=== PATIENT | male | born 1955 | race Caucasian/White ===

== ENCOUNTER 2021-09-23 14:11 | Emergency (ER) | payer MEDICARE ==
[2021-09-23 14:27] VITALS: RESP 20; TEMP 97.9
[2021-09-23] MEDS ORDERED: FLUORESCEIN STRIPS 1 MG STRIP BOTH EYES ONE (14:45)
[2021-09-23] MEDS ORDERED: PROPARACAINE 0.5% OPHTH DROPS 15 ML BTL BOTH EYES STA (14:45)
--- NOTE | 2021-09-23 16:27 | CT ---
EXAMINATION TYPE: CT brain wo con DATE OF EXAM: 09/23/2021 HISTORY: Double vision and hypertension. CT DLP: 1099.4 mGycm. Automated Exposure Control for Dose Reduction was Utilized. TECHNIQUE: CT scan of the head is performed without contrast. COMPARISON: None. FINDINGS: There is no acute intracranial hemorrhage or midline shift identified. There is mild diff use ventricular and sulcal prominence consistent with diffuse age-related cerebral atrophy. Ospina-whit e matter differentiation is maintained. There is 9 mm mucous retention cyst or polyp in the anterior left maxillary sinus otherwise paranasal sinuses are clear. The calvarium is intact. IMPRESSION: No acute intracranial hemorrhage or midline shift.
--- NOTE | 2021-09-23 17:02 | ED ---
General Adult HPI - General Chief complaint: Eye Problems Stated complaint: double vision Time Seen by Provider: 09/23/21 14:44 Source: patient, RN notes reviewed Mode of arrival: ambulatory Limitations: no limitations - History of Present Illness Initial comments: 66-year-old male presents to the emergency room for a chief complaint of double vision. This has been ongoing since she woke up yesterday morning. Patient states he sees 2 of everything. Patient did have injections in the bilateral eyes for diabetic retinopathy on Monday. He called his doctor today and they reported it is likely not a side effect of this. Recommended he come to the ER. Patient denies any difficulty speaking or walking. Denies weakness in the arms or legs.Patient has no other complaints at this time including shortness of breath, chest pain, abdominal pain, nausea or vomiting, headache. - Related Data Home Medications Medication Instructions Recorded Confirmed C,E,Zinc,Copper 11/Anyax6x/Lut 1 cap PO DAILY 09/23/21 09/23/21 [Ocuvite Adult 50 Plus Softgel] Cyanocobalamin (Vitamin B-12) 1,000 mcg PO DAILY 09/23/21 09/23/21 [Vitamin B-12] Garlic 1 cap PO DAILY 09/23/21 09/23/21 Glucosam/Chond/Hyalu/Cf Borate 1 tab PO DAILY 09/23/21 09/23/21 [Move Free Joint Health Tablet] Metoprolol Succinate [Toprol XL] 25 mg PO DAILY 09/23/21 09/23/21 Multivit-Min/FA/Lycopen/Lutein 1 tab PO DAILY 09/23/21 09/23/21 [Centrum Silver Men Tablet] Tamsulosin HCl [Flomax] 0.4 mg PO DAILY 09/23/21 09/23/21 glipiZIDE XL [Glucotrol Xl] 10 mg PO DAILY 09/23/21 09/23/21 Allergies Allergy/AdvReac Type Severity Reaction Status Date / Time No Known Allergies Allergy Verified 09/23/21 18:05 Review of Systems ROS Statement: Those systems with pertinent positive or pertinent negative responses have been documented in the HPI. ROS Other: All systems not noted in ROS Statement are negative. Past Medical History Past Medical History: Hypertension Additional Past Medical History / Comment(s): eye History of Any Multi-Drug Resistant Organisms: None Reported Past Surgical History: No Surgical Hx Reported Past Psychological History: No Psychological Hx Reported Smoking Status: Never smoker Past Alcohol Use History: None Reported Past Drug Use History: None Reported General Exam - General Exam Comments Initial Comments: Proparacaine was given to bilateral eyes and fluorescein stain was used with the Wood's lamp. No abrasions. IOP 22 OS, 20 OD. Visual acuity 20/40 OS, 20/50 OD, 20/30 bilaterally. Limitations: no limitations General appearance: alert, in no apparent distress Head exam: Present: atraumatic Eye exam: Present: normal appearance, PERRL, EOMI. Absent: scleral icterus, conjunctival injection ENT exam: Present: normal exam, mucous membranes moist Neck exam: Present: normal inspection, full ROM. Absent: tenderness Respiratory exam: Present: normal lung sounds bilaterally. Absent: respiratory distress, wheezes Cardiovascular Exam: Present: regular rate, normal rhythm, normal heart sounds GI/Abdominal exam: Present: soft, normal bowel sounds. Absent: distended, tenderness Neurological exam: Present: alert, oriented X3, normal gait Expanded Patient oriented to: Present: person, place, time Speech: Present: fluid speech Cranial nerves: Tongue Deviation: Normal, Nystagmus: Normal, Facial Sensation: Normal Upper motor neuron: Pronator Drift: Normal Sensory exam: Upper Extremity Light Touch: Normal, Upper Extremity Pin Prick: Normal, Lower Extremity Light Touch: Normal, Lower Extremity Pin Prick: Normal Motor strength exam: RUE: 5, LUE: 5, RLE: 5, LLE: 5 Course Vital Signs 09/23/21 09/23/21 09/23/21 14:23 15:56 18:30 Temperature 97.9 F Pulse Rate 72 76 Respiratory 20 20 Rate Blood Pressure 223/115 204/98 201/83 O2 Sat by Pulse 97 98 Oximetry Medical Decision Making - Medical Decision Making Vitals as documented. HPI and physical exam as documented. No focal neurologic deficits. Case was discussed with Dr. 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 Does not feel this is related to the injections. States that at this time patient does not require any additional workup for that the vision and he will see him in the office tomorrow. pt is also Hypertensive in the emergency room. Laboratory evaluation was unremarkable. He was given a dose of hydralazine. He will be discharged home with a dose of his metoprolol. We did discuss keeping a log of his blood pressure twice daily and following up with his doctor for this - Lab Data Result diagrams: 09/23/21 17:19 09/23/21 17:19 Lab Results 09/23/21 09/23/21 Range/Units 17:19 17:19 WBC 7.9 (3.8-10.6) k/uL RBC 5.20 (4.30-5.90) m/uL Hgb 16.0 (13.0-17.5) gm/dL Hct 47.9 (39.0-53.0) % MCV 92.2 (80.0-100.0) fL MCH 30.8 (25.0-35.0) pg MCHC 33.3 (31.0-37.0) g/dL RDW 13.8 (11.5-15.5) % Plt Count 182 (150-450) k/uL MPV 9.7 Neutrophils % 66 % Lymphocytes % 26 % Monocytes % 5 % Eosinophils % 2 % Basophils % 0 % Neutrophils # 5.2 (1.3-7.7) k/uL Lymphocytes # 2.1 (1.0-4.8) k/uL Monocytes # 0.4 (0-1.0) k/uL Eosinophils # 0.1 (0-0.7) k/uL Basophils # 0.0 (0-0.2) k/uL Sodium 140 (137-145) mmol/L Potassium 4.0 (3.5-5.1) mmol/L Chloride 107 (98-107) mmol/L Carbon Dioxide 24 (22-30) mmol/L Anion Gap 9 mmol/L BUN 20 (9-20) mg/dL Creatinine 0.96 (0.66-1.25) mg/dL Est GFR (CKD-EPI)AfAm >90 (>60 ml/min/1.73 sqM) Est GFR (CKD-EPI)NonAf 82 (>60 ml/min/1.73 sqM) Glucose 93 (74-99) mg/dL Calcium 9.5 (8.4-10.2) mg/dL Total Bilirubin 0.7 (0.2-1.3) mg/dL AST 31 (17-59) U/L ALT 34 (4-49) U/L Alkaline Phosphatase 57 (38-126) U/L Total Protein 7.8 (6.3-8.2) g/dL Albumin 4.7 (3.5-5.0) g/dL Disposition Clinical Impression: Diplopia, Hypertension Disposition: HOME SELF-CARE Condition: Good Instructions (If sedation given, give patient instructions): Diplopia (ED) Additional Instructions: Please call Dr. Garcia first thing tomorrow morning. He wants to fit you into the schedule tomorrow. If you're having worsening symptoms return to the emergency room. Follow-up with your primary care provider for your blood pressure as well. Is patient prescribed a controlled substance at d/c from ED?: No Referrals: Luis Gonzalez MD [Primary Care Provider] - 1-2 days Erki Garcia MD [STAFF PHYSICIAN] - 1-2 days Time of Disposition: 18:54
[2021-09-23] MEDS ORDERED: SODIUM CHLORIDE 0.9% 500 ML 500 ML IV STA (17:04)
[2021-09-23] MEDS ORDERED: hydrALAZINE HCL 20 MG/ML 1 ML VIAL IVP STA (17:25)
[2021-09-23 17:28] LABS: Basophils % (A) 0 %; Eosinophils # (A) 0.1 k/uL (0-0.7); Eosinophils % (A) 2 %; HCT 47.9 % (39.0-53.0); Lymphocytes # (A) 2.1 k/uL (1.0-4.8); Lymphocytes % (A) 26 %; MCH 30.8 pg (25.0-35.0); MCHC 33.3 g/dL (31.0-37.0); MCV 92.2 fL (80.0-100.0); Mean Platelet Volume 9.7; Monocytes # (A) 0.4 k/uL (0-1.0); Monocytes % (A) 5 %; Neutrophils # (A) 5.2 k/uL (1.3-7.7); Neutrophils % (A) 66 %; Platelet Count 182 k/uL (150-450); RDW 13.8 % (11.5-15.5); WBC 7.9 k/uL (3.8-10.6)
[2021-09-23 17:38] LABS: Chloride 107 mmol/L (98-107)
[2021-09-23 17:40] LABS: ALT 34 U/L (4-49); AST 31 U/L (17-59); African American GFR (CKD) >90 (>60 ml/min/1.73 sqM); Albumin 4.7 g/dL (3.5-5.0); Alkaline Phosphatase 57 U/L (38-126); Anion Gap 9 mmol/L; Blood Urea Nitrogen 20 mg/dL (9-20); Calcium 9.5 mg/dL (8.4-10.2); Carbon Dioxide 24 mmol/L (22-30); Glucose 93 mg/dL (74-99); Non-African American GFR(CKD) 82 (>60 ml/min/1.73 sqM); Sodium 140 mmol/L (137-145); Total Bilirubin 0.7 mg/dL (0.2-1.3); Total Protein 7.8 g/dL (6.3-8.2)
[2021-09-23 18:31] VITALS: BP 201/83; PULSE 76
[2021-09-23] MEDS ORDERED: METOPROLOL SUCCINATE (ER) 25 MG TAB.ER.24H PO STA (18:34)
== END 2021-09-23 19:02 | disposition home or self-care (01) ==
LOC: EC 14:11
DX: H53.2 Diplopia (principal); I10 Essential (primary) hypertension; Z79.84 Long term (current) use of oral hypoglycemic drugs; Z79.899 Other long term (current) drug therapy
CPT/HCPCS: 36415; 80053; 85025; 70450; 99284; 96374; 96361; J0360

== ENCOUNTER → 2022-08-16 | Outpatient (CLI) | payer MEDICARE ==
[2022-08-16 14:26] LABS: HCT 44.6 % (39.6-50.0); MCH 31.1 pg (27.0-32.0); MCHC 33.6 g/dL (32.0-37.0); MCV 92.5 fL (80.0-97.0); Mean Platelet Volume 12.7 fL (9.5-12.2); NRBC Per 100 WBC 0 /100 WBCS (0.0-0.0); Platelet Count 178 X 10*3/uL (140-440); RBC 4.82 X 10*6/uL (4.40-5.60); RDW 13.9 % (11.5-14.5); WBC 11.05 X 10*3/uL (4.50-10.00)
[2022-08-16 15:33] LABS: African American GFR (CKD) 88.2 (60.0-200.0); Anion Gap 9.6 mmol/L (10.00-18.00); BUN/Creat Ratio 20.69 Ratio (12.00-20.00); Blood Urea Nitrogen 20.9 mg/dL (9.0-27.0); Calcium 9.6 mg/dL (8.7-10.3); Carbon Dioxide 27.5 mmol/L (20.0-27.5); Non-African American GFR(CKD) 76.1 (60.0-200.0); Potassium 5.2 mmol/L (3.5-5.5)
== END | disposition home or self-care (01) ==
LOC: LABPAT 09:26
PROVIDERS: ATTEND Urology
DX: Z01.812 Encounter for preprocedural laboratory examination (principal); C61 Malignant neoplasm of prostate
CPT/HCPCS: 80048; 85027

== ENCOUNTER → 2022-10-12 | Outpatient (CLI) | payer MEDICARE ==
--- NOTE | 2022-10-14 06:14 | MR ---
EXAMINATION TYPE: MR Prostate wo/w con DATE OF EXAM: 10/12/2022 COMPARISON: None. INDICATION: MALIGNANT NEOPLASM OF PROSTATE PSA: 7.00 ng/ml on May 16, 2022 Recent Biopsy and Date: June 28, 2022 Pathology Report (If Applicable): Right base adenocarcinoma Strawn grade 3+3 = 6, approximately 10% of tissue measures 1 mm. Right mid core biopsy atypical small acinar proliferation. Left lateral base adenocarcinoma Strawn grade 4+3 = 7, 20% of tissue measuring 2 mm in length. Left base adenocarcino ma Strawn grade 3+4 = 7, approximate 60% of tissue measuring 5 mm in length. Left lateral mid adenoc arcinoma Strawn grade 3+4 = 7 approximately 20% of tissue measuring 2 mm in length. Left mid adenoca rcinoma Gricelda grade 4+3 = 7, approximate 60% of tissue measuring 6 mm in length. Left lateral apex adenocarcinoma Gricelda grade 4+3 = 7, approximately 90% of tissue measuring 7 mm in length. Left apex adenocarcinoma Gricelda grade 3+4 = 7, approximately 20% of the tissue measuring 2 mm in length. TECHNIQUE: Examination was performed using a 3T MRI without an endorectal coil. Multiparametric imaging was perf ormed with T2 mutliplanar sequences, axial diffusion weighted imaging and dynamic contrast enhanced i maging, utilizing 11 mL intravenous Gadavist gadolinium contrast. FINDINGS: There is no clinically significant cancer identified. PROSTATE VOLUME: 3.3 cm SI x 2.7 cm AP x 4.1 cm LR Vol= 19.1 cc PSA DENSITY: 0.37 ng/ml/cc In the left peripheral zone mid gland level, there are areas of focal mild to moderate diminished sig nal on ADC mapping with mild increased signal on diffusion-weighted imaging. They show diminished sig nal on T2-weighted imaging. No suspicious postcontrast enhancement is seen. PI-RADS 3 . Central zone shows overall heterogeneity without area of significant diminished T2 signal. Seminal vesicles appear within normal limits. Urinary bladder shows adequate distention without suspi cious wall thickening or trabeculation. There are nonspecific pelvic lymph nodes for reference 9 x 6 mm right pelvic lymph node axial image 30 is noted. There are at least small to moderate-sized fat-co ntaining bilateral inguinal hernias. No concerning pelvic fluid collection. IMPRESSION: Normal-sized prostate. Highest Assessment Category: 3 MRI Stage: T1c N0 M0 based on review of pelvic images. False negative rates for MRI range from 5-20% depending on risk profile. Assessment Categories: 1 ? Very low (clinically significant cancer is highly unlikely to be present) 2 ? Low (clinically significant cancer is unlikely to be present) 3 ? Intermediate (the presence of clinically significant cancer is equivocal) 4 ? High (clinically significant cancer is likely to be present) 5 ? Very high (clinically significant cancer is highly likely to be present)
== END | disposition home or self-care (01) ==
LOC: RADMRIMAIN 09:14
PROVIDERS: ATTEND Radiology Radiation Oncology
DX: C61 Malignant neoplasm of prostate (principal)
CPT/HCPCS: 72197; A9585

== ENCOUNTER → 2022-10-17 | Outpatient (CLI) | payer MEDICARE ==
--- NOTE | 2022-10-18 09:18 | NM ---
EXAMINATION TYPE: NM bone scan whole body DATE OF EXAM: 10/17/2022 COMPARISON: NONE HISTORY: 67-year-old male C6 1, malignant neoplasm of prostate TECHNIQUE: Delayed whole-body scanning was performed following the injection of 21.0 mCi Tc 99m MDP. Images acquired 3 hours post injection. FINDINGS: Some normal bladder activity is noted. Focal activity at the left antecubital fossa corresponding to the injection site. Some degenerative tracer activity at the shoulders and sternoclavicular joints. U rine contamination noted. Some degenerative change at the right hindfoot. No suspicious distribution of tracer activity to suggest osseous metastatic disease. IMPRESSION: No scintigraphic evidence for osseous metastatic disease.
== END | disposition home or self-care (01) ==
LOC: RADNMMAIN 10:19
PROVIDERS: ATTEND Radiology Radiation Oncology
DX: C61 Malignant neoplasm of prostate (principal)
CPT/HCPCS: 78306; A9503

== ENCOUNTER → 2022-11-09 | Outpatient (CLI) | payer MEDICARE ==
[2022-11-09 19:25] LABS: Basophils # (A) 0.06 X 10*3/uL (0.00-0.10); Basophils % (A) 0.9 %; Eosinophils # (A) 0.15 X 10*3/uL (0.04-0.35); Eosinophils % (A) 2.1 %; HCT 44.2 % (39.6-50.0); HGB 14.3 g/dL (13.0-17.0); Immature Grans, Automated 0.3 %; Lymphocytes # (A) 1.84 X 10*3/uL (0.90-5.00); Lymphocytes % (A) 26.2 %; MCH 30.2 pg (27.0-32.0); MCHC 32.4 g/dL (32.0-37.0); MCV 93.2 fL (80.0-97.0); Mean Platelet Volume 12.8 fL (9.5-12.2); Monocytes # (A) 0.56 X 10*3/uL (0.20-1.00); NRBC Per 100 WBC 0 /100 WBCS (0.0-0.0); Neutrophils # (A) 4.39 X 10*3/uL (1.80-7.70); Neutrophils % (A) 62.5 %; Platelet Count 184 X 10*3/uL (140-440); RBC 4.74 X 10*6/uL (4.40-5.60); RDW 13.2 % (11.5-14.5); WBC 7.02 X 10*3/uL (4.50-10.00)
[2022-11-10 13:25] LABS: African American GFR (CKD) 89.2 (60.0-200.0); BUN/Creat Ratio 24.1 Ratio (12.00-20.00); Blood Urea Nitrogen 24.1 mg/dL (9.0-27.0); Calcium 9.9 mg/dL (8.7-10.3); Potassium 4.5 mmol/L (3.5-5.5)
== END | disposition home or self-care (01) ==
LOC: LABPAT 11:03
PROVIDERS: ATTEND Urology
DX: Z01.812 Encounter for preprocedural laboratory examination (principal); C61 Malignant neoplasm of prostate
CPT/HCPCS: 36415; 80048; 85025

== ENCOUNTER 2022-11-17 12:28 | Day surgery (SDC) | payer MEDICARE ==
--- NOTE | 2022-11-16 21:41 | P.GSHP ---
History of Present Illness H&P Date: 11/16/22 Chief Complaint: Prostate cancer The patient is a 67-year-old white male whose PSA level was 6.17 in September 2021. His prostate was palpably normal at that time. His PSA level saeed to 7.April, and a small nodule was palpable at the left apex at that time. He underwent a prostate ultrasound with biopsies. The prostate volume was 39 mL. A left apical hypoechoic lesion was seen, and 7 of 12 biopsies showed evidence of malignancy. Specifically, 1 of 6 right-sided biopsies showed a small focus of Pelsor 6 adenocarcinoma. However, all 6 left-sided biopsies showed Pelsor 7 adenocarcinoma. His Prolaris molecular score is 4.4. He was offered the options of radiation therapy versus surgery and has elected to undergo the latter. This was attempted on 08/24/2022 but it was aborted due to respiratory failure. In view of this, he will be treated with androgen deprivation therapy and IMRT. He received a Lupron injection 09/06/2022. He now comes for SpaceOAR implant to reduce the risk of rectal toxicity. - Constitutional Constitutional: Reports fatigue - Genitourinary (Male) Genitourinary: Reports urinary frequency Past Medical History Past Medical History: Cancer, Diabetes Mellitus, Hypertension Additional Past Medical History / Comment(s): eye, cough in morning ? allergies, Prostate cancer . skin cancer removed History of Any Multi-Drug Resistant Organisms: None Reported Past Surgical History: No Surgical Hx Reported Additional Past Surgical History / Comment(s): mult skin grafts 1960s, radical prostatectomy aborted pt had breathing issues Past Anesthesia/Blood Transfusion Reactions: No Reported Reaction Additional Past Anesthesia/Blood Transfusion Reaction / Comment(s): no known hx blood transfusion. aborted anesthesia with procedure due to resp issues Smoking Status: Former smoker - Past Family History Brother(s) Additional Family Medical History / Comment(s): -unk cause Father Family Medical History: Cancer Additional Family Medical History / Comment(s): at age 58-jaw [place] Medications and Allergies Home Medications Medication Instructions Recorded Confirmed Type C,E,Zinc,Copper 11/Fxmcs3o/Lut 1 cap PO DAILY 09/23/21 11/15/22 History [Ocuvite Adult 50 Plus Softgel] Cyanocobalamin (Vitamin B-12) 1,000 mcg PO DAILY 09/23/21 11/15/22 History [Vitamin B-12] Garlic 1 cap PO DAILY 09/23/21 11/15/22 History Glucosam/Chond/Hyalu/Cf Borate 1 tab PO DAILY 09/23/21 11/15/22 History [Move Free Joint Health Tablet] Metoprolol Succinate [Toprol XL] 50 mg PO QAM 09/23/21 11/15/22 History Multivit-Min/FA/Lycopen/Lutein 1 tab PO DAILY 09/23/21 11/15/22 History [Centrum Silver Men Tablet] glipiZIDE XL [Glucotrol Xl] 10 mg PO DAILY 09/23/21 11/15/22 History Benazepril HCl 20 mg PO QAM 08/19/22 11/15/22 History Allergies Allergy/AdvReac Type Severity Reaction Status Date / Time No Known Allergies Allergy Verified 11/15/22 10:06 Surgical - Exam - General well developed, well nourished, no distress - Respiratory normal respiratory effort - Abdomen Abdomen: soft, non tender, no guarding, no rigid, no rebound - Genitourinary normal penis with no external lesions, testicles non-tender - Rectum Rectum: normal sphincter tone, no masses, other (Prostate mildly enlarged with left apical nodule) - Psychiatric oriented to time, oriented to person, oriented to place, speech is normal, memory intact Assessment and Plan (1) Malignant neoplasm of prostate Status: Acute Code(s): C61 - MALIGNANT NEOPLASM OF PROSTATE SNOMED Code(s): 284655511 Plan: The SpaceOar implant has been reviewed in detail with the patient. He understands that the rationale for this is to create separation between the prostate and rectum, thus reducing the risk of radiation proctitis. The material begins to breakdown 12-13 weeks following implant, and is reabsorbed by the body. Risks include anesthesia, bleeding, infection, and perineal discomfort. He understands that if the rectal wall is perforated the procedure will need to be aborted.
[~2022-11-17 12:28] MED LIST: DEXAMETHASONE SOD PHOSPHATE 4 MG/ML 1 ML VIAL IV ONE; HYDROmorphone 0.5 MG/0.5 ML SYRINGE IVP PRN; LACTATED RINGERS 1,000 ML IV SCH; MIDAZOLAM 2 MG/2 ML VIAL IV PRN; ONDANSETRON 4 MG/2 ML VIAL IVP ONE
[2022-11-17 13:28] LABS: Glucose,Whole Blood 122 mg/dL (70-110)
[2022-11-17 13:30] VITALS: TEMP 97.5
[2022-11-17] MEDS ORDERED: PROPOFOL 10 MG/ML 20 ML VIAL IV ONE (13:46)
[2022-11-17] MEDS ORDERED: fentaNYL (PF) 50 MCG/ML 2 ML AMP ONE (13:46)
[2022-11-17] MEDS ORDERED: MIDAZOLAM 2 MG/2 ML VIAL ONE (13:46)
[2022-11-17] MEDS ORDERED: LIDOCAINE 2% INJ 20 MG/ML SQ ONE (14:01)
--- NOTE | 2022-11-17 14:30 | P.OP ---
Date of Procedure: 11/17/22 Preoperative Diagnosis: Adenocarcinoma of the prostate Postoperative Diagnosis: Same Procedure(s) Performed: SpaceOAR Implant Anesthesia: MAC Surgeon: Eleazar Stuart Estimated Blood Loss (ml): 5 IV fluids (ml): 300 Pathology: none sent Condition: stable Disposition: PACU Indications for Procedure: The patient is a 67-year-old white male whose PSA level was 6.17 in September 2021. His prostate was palpably normal at that time. His PSA level saeed to 7.April, and a small nodule was palpable at the left apex at that time. He underwent a prostate ultrasound with biopsies. The prostate volume was 39 mL. A left apical hypoechoic lesion was seen, and 7 of 12 biopsies showed evidence of malignancy. Specifically, 1 of 6 right-sided biopsies showed a small focus of Fletcher 6 adenocarcinoma. However, all 6 left-sided biopsies showed Gricelda 7 adenocarcinoma. His Prolaris molecular score is 4.4. He was offered the options of radiation therapy versus surgery and has elected to undergo the latter. This was attempted on 08/24/2022 but it was aborted due to respiratory failure. In view of this, he will be treated with androgen deprivation therapy and IMRT. He received a Lupron injection 09/06/2022. He now comes for SpaceOAR implant to reduce the risk of rectal toxicity. Operative Findings: 11 mm separation created between prostate and rectum. Description of Procedure: The patient was taken to the operating room and placed in the dorsolithotomy position, with his legs supported in Abiodun stirrups. The external genitalia was prepped and draped sterilely. The Bruel and Kjaer transrectal ultrasound probe was placed intrarectally. The prostate was imaged. The probe was then placed within the stabilizing stand. A spinal needle was advanced under ultrasonic guidance to the level of the urogenital diaphragm, and lidocaine was used to infiltrate the tissues as the needle was withdrawn. Next, the SpaceOAR needle was passed through the midline of the perineum, 1-2 cm anterior to the anal opening. The needle was slowly advanced under ultrasonic guidance until the needle tip was located within the fat plane between the prostate and rectum, at the level of the mid prostate gland. The needle was confirmed to be midline on the axial imaging. A small amount of normal saline was injected for hydrodissection. Next, the SpaceOAR components were mixed and loaded into the Y connector per protocol. The Y connector was then connected to the needle, and the components were injected slowly over a course of approximately 12 seconds. A total of 10 ml was injected. Significant distance was created between the prostate and rectum, as desired. It should be noted that at no point was there any concern of rectal perforation. The needle was withdrawn, as well as the t ransrectal ultrasound probe, and the procedure was terminated. The patient tolerated the procedure well and was taken to the recovery room in stable condition.
[2022-11-17 14:43] VITALS: BP 150/74; PULSE 54; RESP 20
== END 2022-11-17 14:45 | disposition home or self-care (01) ==
LOC: OR 12:28
PROVIDERS: ATTEND Urology
DX: C61 Malignant neoplasm of prostate (principal); E11.9 Type 2 diabetes mellitus without complications; I10 Essential (primary) hypertension; Z90.79 Acquired absence of other genital organ(s); Z87.891 Personal history of nicotine dependence; Z79.899 Other long term (current) drug therapy
CPT/HCPCS: 55874; C1889; J2001; J2250; J1100; J0690; J2405; J3010; J2704

== ENCOUNTER → 2023-11-15 | Outpatient (CLI) | payer MEDICARE ==
[2023-11-15 16:35] LABS: Prostate Specific Antigen <0.01 ng/mL (0.000-4.500); Testosterone <10.00 ng/dL (86.98-780.10)
== END | disposition home or self-care (01) ==
LOC: LABWHC1 12:56
PROVIDERS: ATTEND Radiology Radiation Oncology
DX: C61 Malignant neoplasm of prostate (principal); Z79.818 Long term (current) use of other agents affecting estrogen receptors and estrogen levels
CPT/HCPCS: 36415; 84153; 84403

== ENCOUNTER → 2024-06-21 | Outpatient (CLI) | payer MEDICARE ==
[2024-06-21 18:59] LABS: Prostate Specific Antigen 0.12 ng/mL (0.000-6.500)
== END | disposition home or self-care (01) ==
LOC: LABWHC1 12:54
PROVIDERS: ATTEND Radiology Radiation Oncology
DX: C61 Malignant neoplasm of prostate
CPT/HCPCS: 36415; 84153; 84403

== ENCOUNTER → 2024-12-25 | Outpatient (CLI) | payer MEDICARE | END | disposition home or self-care (01) | LOC: LABWHC1 11:02 | PROVIDERS: ATTEND Radiology Radiation Oncology | DX: Z08 Encounter for follow-up examination after completed treatment for malignant neoplasm (principal); C61 Malignant neoplasm of prostate; Z79.818 Long term (current) use of other agents affecting estrogen receptors and estrogen levels | CPT/HCPCS: 36415; 84153 ==